=== PATIENT | female | born 1990 | race Caucasian/White ===

== ENCOUNTER 2018-08-23 10:39 | Emergency (ER) | payer BC, OTHER, SELFPAY ==
[2018-08-23] MEDS ORDERED: PRENTAB9 PO (11:11)
== END 2018-08-23 11:00 | disposition admitted as inpatient to this hospital (09) ==
LOC: M ED 10:39
DX: Z53.29 Procedure and treatment not carried out because of patient's decision for other reasons (principal)

== ENCOUNTER 2018-08-23 10:51 | Outpatient (CLI) | payer BC, OTHER ==
[~2018-08-23] VITALS: Ht 175.3 cm; Wt 67.4 kg
[2018-08-23 11:08] VITALS: BP 94/50
[2018-08-23] MEDS ORDERED: PRENTAB9 PO (11:11)
--- NOTE | 2018-08-23 12:31 | IPN ---
DATE: 08/23/2018 Geno is a 28-year-old 1, para 0 at 21+ weeks gestation. She has an estimated date of confinement (EDC) of 01/04/2018 based on first trimester ultrasound. She presents to labor and delivery today with a complaint of some mild cramping this morning and the passage of a nickel size clot when she utilized the bathroom. She denies any further vaginal bleeding and she denies any further cramping. The fetus has been occasionally active. Her care was initiated at an out-of-town provider at [facility]. She is here visiting family for the holidays. Her course complicated by a recent diagnosis on her anatomy scan of a low-lying placenta. She does not know how far the placenta is from the internal cervical os. I am unable to retrieve records for this patient. The on-call provider says they do not have access to them at this time, so the history is based on a verbal report from the patient. PAST MEDICAL HISTORY: Thyroid nodules. SURGERIES: [employer] teeth. FAMILY HISTORY: Leukemia, cardiac pacemaker, cerebrovascular accident, diabetes, glaucoma and melanoma. SOCIAL HISTORY: . Nonsmoker. Denies alcohol and drug use. Denies history of sexually transmitted diseases (STDs). Denies history of abuse physical, sexual and emotional. ALLERGIES: No known drug allergies. CURRENT MEDICATIONS: vitamins OBJECTIVE: Temperature 98.5, pulse 54, respirations 18, blood pressure is 94/50. She is alert and oriented times three. She is in no apparent distress. heart rate is 145, appropriate for gestational age. There is no pattern of contractions, based on EFM. Sterile speculum exam reveals no active bleeding from the cervix. No bleeding noted in vaginal vault. Cervix appears visually closed. ASSESSMENT: Intrauterine at 21+ weeks. heart rate appropriate for gestation. Known low-lying placenta. No active bleeding. PLAN: Discharge the patient to home. I did review access to care and danger signs related to low-lying placenta to report. I advised pelvic rest and no active, physical exercise. The patient and her have had all their questions answered and do agree with discharge plans.
== END 2018-08-23 11:50 | disposition home or self-care (01) ==
LOC: M LDO 10:51
PROVIDERS: ATTEND Advanced Practice Midwife
DX: O99.89 Other specified diseases and conditions complicating pregnancy, childbirth and the puerperium (principal); R10.2 Pelvic and perineal pain; O44.42 Low lying placenta NOS or without hemorrhage, second trimester; Z3A.21 21 weeks gestation of pregnancy
CPT/HCPCS: G0378; G0463